=== PATIENT | female | born 1995 | race Native Hawaiian/Other Pacific Islander ===

== ENCOUNTER 2021-05-31 18:33 | Inpatient (IN) | payer MEDICAID, SELFPAY ==
[~2021-05-31] VITALS: Ht 167.6 cm; Wt 68.0 kg
[2021-05-31] MEDS ORDERED: OXYTOCIN 20 UNITS in LACTATED RINGERS 1,000 ML IV SCH (18:40)
[2021-05-31] MEDS ORDERED: LACTATED RINGERS 500 ML IV ONE (18:40)
[2021-05-31] MEDS ORDERED: CARBOPROST 250 MCG/ML AMP IM PRN (18:40)
[2021-05-31] MEDS ORDERED: METHYLERGONOVINE 0.2 MG/ML AMP IM PRN (18:40)
[2021-05-31 19:11] VITALS: BP 116/72
[2021-05-31 19:19] LABS: BASOPHILS # (AUTO) 0.1 K/uL (0.00-0.22); BASOPHILS % (AUTO) 1.1 % (0.0-2.0); EOSINOPHILS # (AUTO) 0.1 K/uL (0-0.4); EOSINOPHILS % (AUTO) 0.7 % (0.0-4.0); HEMATOCRIT 29.7 % (36-48); HEMOGLOBIN 9.7 g/dL (12.0-16.0); LYMPHOCYTES # (AUTO) 1.2 K/uL (2.5-16.5); LYMPHOCYTES % (AUTO) 14.8 % (20.5-51.1); MEAN CORPUSCULAR HEMOGLOBIN 26 pg (27-31); MEAN CORPUSCULAR HGB CONC 33 g/dL (33-37); MEAN CORPUSCULAR VOLUME 79.2 fL (80-94); MONOCYTES # (AUTO) 0.4 K/uL (0.8-1.0); MONOCYTES % (AUTO) 5.4 % (1.7-9.3); PLATELET COUNT (AUTO) 252 K/uL (140-450); RED BLOOD CELL COUNT(AUTO) 3.75 MIL/uL (4.20-5.40); RED CELL DISTRIBUTION WIDTH 14.3 % (11.6-13.7); WHITE BLOOD COUNT (AUTO) 7.8 K/uL (4.8-10.8)
[2021-05-31 19:45] LABS: APPEARANCE,URINE CLOUDY (CLEAR); BILIRUBIN,URINE NEGATIVE (NEGATIVE); BLOOD, URINE TRACE-I (NEGATIVE); COLOR,URINE YELLOW (YELLOW); LEUKOCYTE ESTERASE ,URINE 2+ (NEGATIVE); NITRITE, URINE POSITIVE (NEGATIVE); UGLUCOSE NEGATIVE (NEGATIVE)
[2021-05-31 19:58] LABS: ALBUMIN 2.7 g/dL (3.4-5.0); ANION GAP 15.6 (8-16); CARBON DIOXIDE 24.9 mmol/L (21-32); CREATININE 0.8 mg/dL (0.6-1.3); POTASSIUM 3.5 mmol/L (3.5-5.1); TOTAL BILIRUBIN 0.3 mg/dL (0.0-1.0)
[2021-05-31] MEDS: MISOPROSTOL 25 MCG TAB VG SCH (20:51)
[2021-05-31 21:01] LABS: RBC,URINE 0-5 /HPF (0-5); WBC,URINE 80-100 /HPF (0-5)
[2021-05-31] MEDS: LACTATED RINGERS 1,000 ML IV SCH (23:40)
[2021-06-01] MEDS: MISOPROSTOL 25 MCG TAB VG SCH (03:16)
[2021-06-01] MEDS: LACTATED RINGERS 1,000 ML IV SCH ×2 (04:07→13:35)
[2021-06-01] MEDS ORDERED: OXYTOCIN 20 UNITS/LR PREMIX 1,000 ML IV ONE (11:14)
[2021-06-01] MEDS ORDERED: PRETAB PO (16:17)
[2021-06-01] MEDS ORDERED: LIDOCAINE 1% 500 MG/50 ML VIAL ONE (16:41)
[2021-06-01] MEDS ORDERED: LIDOCAINE MPF 1% 10 MG/ML VIAL INJ SCH (16:45)
[2021-06-01] MEDS ORDERED: MORPHINE SULFATE 4 MG/ML SYR ONE (17:55)
[2021-06-01] MEDS ORDERED: MORPHINE SULFATE 2 MG/ML SYR IVP ONE (18:10)
[2021-06-01] MEDS ORDERED: BENZOCAINE/MENTHOL 20%-0.5% 60 GM CAN TP PRN (18:20)
[2021-06-01] MEDS ORDERED: OXYTOCIN 10 UNITS/ML VIAL IM PRN (18:20)
[2021-06-01] MEDS ORDERED: IBUPROFEN 800 MG TAB PO PRN (18:20)
[2021-06-01] MEDS ORDERED: MEASLES, MUMPS, AND RUBELLA 1 VIAL SQVAC ONE (18:20)
[2021-06-01] MEDS ORDERED: METHYLERGONOVINE 0.2 MG TAB PO PRN (18:20)
[2021-06-01] MEDS ORDERED: METHYLERGONOVINE 0.2 MG/ML AMP IM PRN (18:20)
[2021-06-01] MEDS ORDERED: ceFAZolin 1,000 MG VIAL ONE (19:13)
[2021-06-01] MEDS ORDERED: AMMONIA AROMATIC 1 INHL INH ONE (23:56)
[2021-06-02 06:46] LABS: HEMATOCRIT 24.2 % (36-48)
--- NOTE | 2021-06-02 08:14 | NUR ---
PATIENT HAS BEEN SCREENED AND CATEGORIZED LOW NUTRITION RISK. PATIENT WILL BE SEEN WITHIN 7 DAYS OF ADMISSION. 06/07/[address]
[2021-06-02] MEDS: FERROUS SULFATE 325 MG TABEC PO SCH ×2 (08:53→16:52)
[2021-06-02] MEDS ORDERED: IBUPROFEN 600 MG TAB PO PRN (09:45)
[2021-06-03] MEDS ORDERED: ACET-2214 PO (07:44)
[2021-06-03] MEDS ORDERED: IBUP-1801 PO (07:44)
[2021-06-03] MEDS: FERROUS SULFATE 325 MG TABEC PO SCH (09:51)
== END 2021-06-03 12:20 | disposition home or self-care (01) | DRG 560 ==
LOC: MLD 18:33 → MFCC 06-01 21:10
PROVIDERS: ADMIT Obstetrics & Gynecology; ATTEND Obstetrics & Gynecology
PROC: 3E033VJ Introduction of Other Hormone into Peripheral Vein, Percutaneous Approach (ICD-10-PCS; 2021-05-31)
PROC: 3E0DXGC Introduction of Other Therapeutic Substance into Mouth and Pharynx, External Approach (ICD-10-PCS; 2021-05-31)
PROC: 10E0XZZ Delivery of Products of Conception, External Approach (ICD-10-PCS; principal; 2021-06-01)
PROC: 0HQ9XZZ Repair Perineum Skin, External Approach (ICD-10-PCS; 2021-06-01)
PROC: 10907ZC Drainage of Amniotic Fluid, Therapeutic from Products of Conception, Via Natural or Artificial Opening (ICD-10-PCS; 2021-06-01)
DX: O70.0 First degree perineal laceration during delivery (principal); Z37.0 Single live birth; D62 Acute posthemorrhagic anemia; O75.89 Other specified complications of labor and delivery; Z3A.39 39 weeks gestation of pregnancy; Z20.822 Contact with and (suspected) exposure to COVID-19
CPT/HCPCS: 36415; 59200; 59409; 76805; 80053; 81001; 85018; 85025; 86592; 86886; 86900; 86901; 87086; 90715; J0690; J2001; J2210; J2270; J2590; J7060; Q0092